=== PATIENT | female | born 1965 | race Caucasian/White ===

== ENCOUNTER 2018-06-09 16:53 | Emergency (ER) | payer BC ==
[~2018-06-09] VITALS: Ht 157.5 cm; Wt 60.0 kg
[2018-06-09 17:03] VITALS: Ht 157.5 cm; Wt 60.0 kg
--- NOTE | 2018-06-09 20:41 | ERD ---
ER Documentation Chief Complaint Chief Complaint pt is bib self with c/o abscess to right axilla x 2 wks HPI This is a 52-year-old female presents to emerge department with complaints of ri ght upper inner arm abscess started 2 weeks ago. Patient stated that this is painful. LMP: Stated that he was November 2017. A0. Denies headache, head injury, loss of consciousness, dizziness, neck pain, neck stiffness, throat pain, difficulty swallowing, difficulty breathing lying flat, shoulder pain, chest pain, back pain, abdominal pain, nausea, vomiting, constipation, diarrhea, urinary symptoms, or possibility being , loss of bowel and bladder control, trauma, injury, falls, difficulty walking due to pain, numbness or tingling sensation, calf pain, recent travel, recent major surgery in the last 3 weeks, calf pain, recent long travel, recent exposure to any illness, recent antibiotic use in the last 3 months, fever, chills, seizures. Past medical history: Surgical history: Social: Denies smoking, use of alcoholic beverages, use of illegal drugs. ROS All systems reviewed and are negative except as per history of present illness. Medications Home Meds Active Scripts Loratadine (Loratadine) 10 Mg Capsule, 10 MG PO DAILY, #30 CAP Prov:PASILABAN,KLAR F 06/09/18 Ibuprofen* (Motrin*) 600 Mg Tab, 600 MG PO Q6H PRN for PAIN AND OR ELEVATED TEMP, #30 TAB Prov:PASILABAN,KLAR F 06/09/18 Hydrocodone/Acetaminophen ([facility] 5-325 Tablet) 1 Each Tablet, 1 TAB PO Q6H PRN for PAIN, #7 TAB Prov:PASILABAN,KLAR F 06/09/18 Sulfamethoxazole/Trimethoprim* (Bactrim Ds* Tablet) 1 Each Tablet, 1 TAB PO BID for 7 Days, #14 TAB Prov:PASILABAN,KLAR F 06/09/18 Cephalexin* (Keflex*) 500 Mg Capsule, 500 MG PO QID for 5 Days, CAP Prov:PASILABAN,KLAR F 06/09/18 Allergies Allergies: Coded Allergies: vancomycin (Verified Allergy, Severe, REDMANS SYNDROME, 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 Neck: Full range of motion. No meningismus. Resp: Clear to auscultation bilaterally Cardio: Regular rate and rhythm, no murmurs Abd: Soft, non tender, non distended. Normal bowel sounds Skin: No petechiae or rashes. Right upper arm/proximal area circular redness that is measuring approximately 2.5 cm in diameter. There is a fluctuance in the middle. Right shoulder has good and full range of motion. Right radial pulse is within normal limits. Back: No midline or flank tenderness Ext: No cyanosis, or edema Neur: Awake and alert. No neurological deficit. Psych: Normal Mood and Affect Results 24 hrs Current Medications Medications Dose Sig/Cally Start Time Status Last (Trade) Ordered Route PRN Stop Time Admin Dose Reason Admin Lidocaine 20 ml ONCE ONCE 06/09/18 DC (Xylocaine SC 21:00 1% (Mdv) 20 06/09/18 21:01 ml) 1 tab ONCE ONCE 06/09/18 DC 06/09/18 Acetaminophen PO 21:00 20:57 / 06/09/18 21:01 Hydrocodone Bitart ([facility] (10/325)) Bacitracin 1 applic ONCE ONCE 06/09/18 DC 06/09/18 (Bacitracin TOP 21:30 22:11 Oint (Ud)) 06/09/18 21:31 Procedures/MDM Diagnostic tests: Clinical exam. Treatment: [facility]. Procedure: Incision and drainage of abscess. Verbal consent was taken from the patient. Betadine prep. Lidocaine 1% 2 cc subcu. Incised using scalpel. Drained minimal mucopurulent discharge. Re-evaluation: No active bleeding. Differential diagnosis I have low suspicion for deep space infection, sepsis. Final diagnosis: Abscess with incision and drainage. Prescription: Bactrim. Keflex. [facility]od p.o. Motrin. Follow-up with PCP in the next 24-48 hours. Come back in 2 days for wound c heck. Come back here in the emergency department for any new symptoms or any worsening symptoms. All questions and concerns were answered. Patient and family members verbalized understanding and agreed with plan of care. Hemodynamically stable on discharge. Departure Diagnosis: Primary Impression: Abscess Additional Impressions: Acute abscess Incisional abscess Allergic rhinitis Condition: Stable Additional Instructions: Follow-up with PCP in the next 24-48 hours. Come back in 2 days for wound check. Come back here in the emergency department for any new symptoms or any worsening symptoms. CHAMP RODRIGUES Jun 09, 2018 20:41
[2018-06-09] MEDS ORDERED: HYDROCODONE/APAP (10/325) TAB PO ONE (21:00)
[2018-06-09] MEDS ORDERED: LIDOCAINE 1% (MDV) 20 ML INJ SC ONE (21:00)
[2018-06-09] MEDS ORDERED: IBUP-1542 PO (21:08)
[2018-06-09] MEDS ORDERED: CEPH-443 PO (21:08)
[2018-06-09] MEDS ORDERED: HYDR-4011 PO (21:08)
[2018-06-09] MEDS ORDERED: SULF1TAB31 PO (21:08)
[2018-06-09] MEDS ORDERED: LORA10CA9 PO (21:09)
[2018-06-09] MEDS ORDERED: BACITRACIN 0.9 GM OINT TOP ONE (21:30)
[2018-06-09 22:25] VITALS: BP 166/82; PULSE 81; RESP 20
== END 2018-06-09 22:26 | disposition home or self-care (01) ==
LOC: FTE 16:53
DX: L02.411 Cutaneous abscess of right axilla (principal); J30.9 Allergic rhinitis, unspecified
CPT/HCPCS: 10060; Z7610